=== PATIENT | male | born 1990 | race Caucasian/White ===

== ENCOUNTER 2016-12-04 23:56 | Emergency (ER) | payer SELFPAY ==
[2016-12-05] MEDS ORDERED: LORATADINE 10 MG TAB As Ordered ONE (00:39)
[2016-12-05] MEDS ORDERED: HYDROCORTISONE 1% CREAM 30 GM As Ordered ONE (00:39)
[2016-12-05] MEDS ORDERED: CLINDAMYCIN 150 MG CAP As Ordered ONE (00:40)
--- NOTE | 2016-12-05 01:15 | EDDOCDS ---
Nurse's Notes [facility] Name: Jun Beck Age: 26 yrs Sex: Male : 1990 Arrival Date: 12/04/2016 Time: 23:56 Bed TR8 Private MD: Diagnosis: Local infection of the skin and subcutaneous tissue, unspecified-Trunk and Face, Most likely infected insect bite Presentation: 12/05 00:11 Presenting complaint: Patient states: Red raised areas on right flank and left eye. kmg1 Also has a "bump" under the skin on the left shoulder. Adult Sepsis Screening: Suicide/Homicide risk assessment- the patient denies having any suicidal and/or homicidal ideations and does not present with any other emotional, behavioral or mental health complaints. Status: Patient is not a services rep or dependent. Transition of care: patient was not received from another setting of care. 00:11 Acuity: CHRIS Level 5 km 00:11 Method Of Arrival: Walkin/Carried/Asstd [facility] 00:16 Adult Sepsis Screening: The patient does not have new or worsening altered mentation. kmg1 Patient's respiratory rate is less than 22. Systolic blood pressure is greater than 100. Patient has a qSOFA score of 0- Negative Sepsis Screen. Triage Assessment: 00:16 Bite Description: Bite sustained to left eye, anterior aspect of right lateral abdomen kmg1 and posterior aspect of right lateral abdomen is unknown, ?insect by unknown, Animal Information: Vaccine status: is not applicable not applicable. General: Appears in no apparent distress, comfortable, Behavior is appropriate for age, cooperative, pleasant. Pain: Denies pain. Pt Declines HIV testing. Respiratory: Airway is patent Respiratory effort is even, unlabored, Respiratory pattern is regular, symmetrical. Derm: Rash noted that is itchy, red, on anterior aspect of right lateral abdomen and posterior aspect of right lateral abdomen Reports "Bump" under skin on left shoulder. Historical: - Allergies: SULFA (SULFONAMIDES); IODINEIODINE CONTAINING; SHELLFISH; - Home Meds: 1. albuterol sulfate 90 mcg/actuation Inhl HFAA 2 puffs every 4-6 hours 2. Advair Diskus 250-50 mcg/dose Inhl dsdv 1 puff 2 times per day - PMHx: Asthma; - PSHx: Left Hip repair; - Immunization history:: Last tetanus immunization: < 10 years ago. - Family history: Not pertinent. - Social history: Smoking status: Patient uses tobacco products, light tobacco smoker. No barriers to communication noted, The patient speaks fluent Bengali, Speaks appropriately for age. - : The pt / caregiver states he / she is not on anticoagulants. Home medication list is obtained from the patient. - Exposure Risk Screening:: None identified. Screenin:48 Screening information is obtained from the patient. Fall risk: No risks identified. kmg1 Assistance ADL's: requires no assistance with activities of daily living. Abuse/DV Screen: The patient / caregiver reports he/she is: not in a situation that causes fear, pain or injury. Nutritional screening: No deficits noted. Advance Directives: Currently, there is no health care proxy. There is no active DNR order. home support is adequate. Assessment: 00:15 General: See Triage Assessment. kmg1 00:48 General: Appears in no apparent distress, comfortable, No change in prior assessment. kmg1 Derm: Skin is intact. Vital Signs: 00:16 BP 159 / 75; Pulse 78; Resp 18; Temp 98.2(O); Pulse Ox 96% on R/A; Weight 97.07 kg (M); kmg1 Height 6 ft. 3 in. (190.50 cm) (R); Pain 0/10; 00:16 Body Mass Index 26.75 (97.07 kg, 190.50 cm) [facility] Vitals: 00:16 Log In Time: December 04, 2016 at 23:57. [facility] ED Course: 12/04 23:57 Patient visited by Josephine Khoury Reg. hs2 23:57 Patient moved to Waiting 2 12/05 00:13 Triage Initiated kmg1 00:23 Wendy Faulkner PA-C is PHCP. ef1 00:23 Max Amaro DO is Attending Physician. ef1 00:23 Patient moved to Triage 1 ef1 00:24 Patient visited by Wendy Faulkner PA-C. ef1 00:34 [facility] is Referral Physician. ef1 00:48 The patient / caregiver is instructed regarding the plan of care and ED course. kmg1 00:48 No IV's were initiated during this patient's visit. No procedures done that require kmg1 assistance. 00:49 Patient moved to 8 [facility] 01:00 Patient name changed from Jun\\S\\\\S\\Eppolito\\S\\ to Jun\\S\\Duarte\\S\\Eppolito. EDMS 01:02 [facility] Payment Agreement was scanned into [employer] and attached to record. pm4 Administered Medications: 00:48 Drug: Clindamycin 300 mg [clindamycin 150 mg capsule (2 caps)] Route: PO; kmg1 00:48 Drug: Loratadine 10 mg [loratadine 10 mg tablet (1 tabs)] Route: PO; kmg1 00:48 Drug: Hydrocortisone 1 applic [hydrocortisone 1 % topical cream (1 applic)] Route: km Topical; Site: abdomen; Order Results: There are currently no results for this order. Outcome: 00:34 Discharge ordered by Provider. ef1 00:48 Discharge Assessment: Patient awake, alert and oriented x 3. No cognitive and/or kmg1 functional deficits noted. Patient verbalized understanding of disposition instructions. Patient awake and alert. patient administered narcotics - no. The following High Risk Discharge criteria are identified: None. Discharged to home ambulatory. Condition: stable. Discharge instructions given to patient, Instructed on discharge instructions, follow up and referral plans. medication usage, Demonstrated understanding of instructions, medications, Pt was receptive of discharge instructions/ teaching. Prescriptions given X 2. No special radiology studies were completed. Property sent home with patient. 01:[address] ED[address] [facility] Signatures: Dispatcher [facility] Angela Berry RN RN g1 Wendy Faulkner PA-C PA-C ef1 Josephine Khoury, Reg Reg hs2 Ermias Grigsby, Reg Reg pm4 Corrections: (The following items were deleted from the chart) 00:32 00:16 BP 159 / 75; Pulse 78bpm; Resp 18bpm; Pulse Ox 96% RA; Temp 98.2F Oral; Height 6 kmg1 ft. 3 in. Reported; Pain 0/10; kmg1 MTDD
--- NOTE | 2016-12-05 01:15 | EDDOCDS ---
Physician Documentation [facility] Name: Jun Beck Age: 26 yrs Sex: Male : 1990 Arrival Date: 12/04/2016 Time: 23:56 Bed TR8 Private MD: Disposition: 12/05/16 00:34 Discharged to Home/Self Care. Impression: Local infection of the skin and subcutaneous tissue, unspecified - Trunk and Face, Most likely infected insect bite. - Condition is Stable. - Discharge Instructions: Insect Bite, [id number]. - Prescriptions for Clindamycin HCl 300 mg Oral Capsule - take 1 capsule by ORAL route every 6 hours; 40 capsule. Claritin 10 mg Oral Tablet - take 1 tablet by ORAL route once daily As needed; 30 tablet. - Referral List Call for Appointment, Medication Reconciliation, Local Pharmacy Hours form. - [facility] ; When: 1 - 2 days; Reason: Recheck today's complaints, Continuance of care. Follow up: Emergency Department; Reason: Worsening of conditions. - Problem is new. - Symptoms have improved. Historical: - Allergies: SULFA (SULFONAMIDES); IODINEIODINE CONTAINING; SHELLFISH; - Home Meds: 1. albuterol sulfate 90 mcg/actuation Inhl HFAA 2 puffs every 4-6 hours 2. Advair Diskus 250-50 mcg/dose Inhl dsdv 1 puff 2 times per day - PMHx: Asthma; - PSHx: Left Hip repair; - Immunization history:: Last tetanus immunization: < 10 years ago. - Family history: Not pertinent. - Social history: Smoking status: Patient uses tobacco products, light tobacco smoker. No barriers to communication noted, The patient speaks fluent Barbadian, Speaks appropriately for age. - : The pt / caregiver states he / she is not on anticoagulants. Home medication list is obtained from the patient. - Exposure Risk Screening:: None identified. Vital Signs: 12/05 00:16 BP 159 / 75; Pulse 78; Resp 18; Temp 98.2(O); Pulse Ox 96% on R/A; Weight 97.07 kg / kmg1 214 lbs (M); Height 6 ft. 3 in. (190.50 cm) (R); Pain 0/10; 00:16 Body Mass Index 26.75 (97.07 kg, 190.50 cm) kmg1 MDM: 00:31 Clindamycin 300 mg PO once ordered. ef1 00:31 Loratadine 10 mg PO once ordered. ef1 00:32 Hydrocortisone Cream 1 % 1 applic Topical once ordered. ef1 00:45 Financial registration complete. pm4 01:02 [facility] Payment Agreement was scanned into [employer] and attached to record. pm4 Administered Medications: 00:48 Drug: Clindamycin 300 mg [clindamycin 150 mg capsule (2 caps)] Route: PO; kmg1 00:48 Drug: Loratadine 10 mg [loratadine 10 mg tablet (1 tabs)] Route: PO; kmg1 00:48 Drug: Hydrocortisone 1 applic [hydrocortisone 1 % topical cream (1 applic)] Route: km Topical; Site: abdomen; Signatures: Angela Berry, RN RN kmg1 Wendy Faulkner, PA-C PA-C ef1 Ermias Grigsby, Reg Reg pm4 The chart was reviewed and I authenticate all verbal orders and agree with the evaluation and treatment provided.Attachments: 01:02 [facility] Payment Agreement pm4 MTDD
--- NOTE | 2016-12-07 02:15 | EDDOCDS ---
Physician Documentation [facility] Name: Jun Beck Age: 26 yrs Sex: Male : 1990 Arrival Date: 12/04/2016 Time: 23:56 Bed TR8 Private MD: Disposition: 12/05/16 00:34 Discharged to Home/Self Care. Impression: Local infection of the skin and subcutaneous tissue, unspecified - Trunk and Face, Most likely infected insect bite. - Condition is Stable. - Discharge Instructions: Insect Bite, [id number]. - Prescriptions for Clindamycin HCl 300 mg Oral Capsule - take 1 capsule by ORAL route every 6 hours; 40 capsule. Claritin 10 mg Oral Tablet - take 1 tablet by ORAL route once daily As needed; 30 tablet. - Referral List Call for Appointment, Medication Reconciliation, Local Pharmacy Hours form. - [facility] ; When: 1 - 2 days; Reason: Recheck today's complaints, Continuance of care. Follow up: Emergency Department; Reason: Worsening of conditions. - Problem is new. - Symptoms have improved. Historical: - Allergies: SULFA (SULFONAMIDES); IODINEIODINE CONTAINING; SHELLFISH; - Home Meds: 1. albuterol sulfate 90 mcg/actuation Inhl HFAA 2 puffs every 4-6 hours 2. Advair Diskus 250-50 mcg/dose Inhl dsdv 1 puff 2 times per day - PMHx: Asthma; - PSHx: Left Hip repair; - Immunization history:: Last tetanus immunization: < 10 years ago. - Family history: Not pertinent. - Social history: Smoking status: Patient uses tobacco products, light tobacco smoker. No barriers to communication noted, The patient speaks fluent Burundian, Speaks appropriately for age. - : The pt / caregiver states he / she is not on anticoagulants. Home medication list is obtained from the patient. - Exposure Risk Screening:: None identified. Vital Signs: 12/05 00:16 BP 159 / 75; Pulse 78; Resp 18; Temp 98.2(O); Pulse Ox 96% on R/A; Weight 97.07 kg / kmg1 214 lbs (M); Height 6 ft. 3 in. (190.50 cm) (R); Pain 0/10; 00:16 Body Mass Index 26.75 (97.07 kg, 190.50 cm) kmg1 MDM: 00:31 Clindamycin 300 mg PO once ordered. ef1 00:31 Loratadine 10 mg PO once ordered. ef1 00:32 Hydrocortisone Cream 1 % 1 applic Topical once ordered. ef1 00:45 Financial registration complete. pm4 01:02 [facility] Payment Agreement was scanned into [employer] and attached to record. pm4 09:41 T-Sheet-- Draft Copy was scanned into [employer] and attached to record. gb Administered Medications: 00:48 Drug: Clindamycin 300 mg [clindamycin 150 mg capsule (2 caps)] Route: PO; kmg1 00:48 Drug: Loratadine 10 mg [loratadine 10 mg tablet (1 tabs)] Route: PO; kmg1 00:48 Drug: Hydrocortisone 1 applic [hydrocortisone 1 % topical cream (1 applic)] Route: kmg1 Topical; Site: abdomen; Signatures: Angela Berry RN RN kmg1 Bell Reynoso, Reg Reg gb Wendy Faulkner, PA-C PA-C ef1 Ermias Grigsby, Reg Reg pm4 The chart was reviewed and I authenticate all verbal orders and agree with the evaluation and treatment provided.Attachments: 01:02 [facility] Payment Agreement pm4 09:41 T-Sheet-- Draft Copy gb Chart Complete MTDD
--- NOTE | 2016-12-07 02:15 | EDDOCDS ---
Physician Documentation [facility] Name: Jun Beck Age: 26 yrs Sex: Male : 1990 Arrival Date: 12/04/2016 Time: 23:56 Bed TR8 Private MD: Disposition: 12/05/16 00:34 Discharged to Home/Self Care. Impression: Local infection of the skin and subcutaneous tissue, unspecified - Trunk and Face, Most likely infected insect bite. - Condition is Stable. - Discharge Instructions: Insect Bite, [id number]. - Prescriptions for Clindamycin HCl 300 mg Oral Capsule - take 1 capsule by ORAL route every 6 hours; 40 capsule. Claritin 10 mg Oral Tablet - take 1 tablet by ORAL route once daily As needed; 30 tablet. - Referral List Call for Appointment, Medication Reconciliation, Local Pharmacy Hours form. - [facility]: [facility] ; When: 1 - 2 days; Reason: Recheck today's complaints, Continuance of care. Follow up: Emergency Department; Reason: Worsening of conditions. - Problem is new. - Symptoms have improved. Historical: - Allergies: SULFA (SULFONAMIDES); IODINEIODINE CONTAINING; SHELLFISH; - Home Meds: 1. albuterol sulfate 90 mcg/actuation Inhl HFAA 2 puffs every 4-6 hours 2. Advair Diskus 250-50 mcg/dose Inhl dsdv 1 puff 2 times per day - PMHx: Asthma; - PSHx: Left Hip repair; - Immunization history:: Last tetanus immunization: < 10 years ago. - Family history: Not pertinent. - Social history: Smoking status: Patient uses tobacco products, light tobacco smoker. No barriers to communication noted, The patient speaks fluent Belarusian, Speaks appropriately for age. - : The pt / caregiver states he / she is not on anticoagulants. Home medication list is obtained from the patient. - Exposure Risk Screening:: None identified. Vital Signs: 12/05 00:16 BP 159 / 75; Pulse 78; Resp 18; Temp 98.2(O); Pulse Ox 96% on R/A; Weight 97.07 kg / kmg1 214 lbs (M); Height 6 ft. 3 in. (190.50 cm) (R); Pain 0/10; 00:16 Body Mass Index 26.75 (97.07 kg, 190.50 cm) kmg1 MDM: 00:31 Clindamycin 300 mg PO once ordered. ef1 00:31 Loratadine 10 mg PO once ordered. ef1 00:32 Hydrocortisone Cream 1 % 1 applic Topical once ordered. ef1 00:45 Financial registration complete. pm4 01:02 [facility] Payment Agreement was scanned into [employer] and attached to record. pm4 09:41 T-Sheet-- Draft Copy was scanned into [employer] and attached to record. gb Administered Medications: 00:48 Drug: Clindamycin 300 mg [clindamycin 150 mg capsule (2 caps)] Route: PO; kmg1 00:48 Drug: Loratadine 10 mg [loratadine 10 mg tablet (1 tabs)] Route: PO; kmg1 00:48 Drug: Hydrocortisone 1 applic [hydrocortisone 1 % topical cream (1 applic)] Route: kmg1 Topical; Site: abdomen; Signatures: Angela Berry RN RN kmg1 Bell Reynoso, Reg Reg gb Wendy Faulkner, PA-C PA-C ef1 Ermias Grigsby, Reg Reg pm4 The chart was reviewed and I authenticate all verbal orders and agree with the evaluation and treatment provided.Attachments: 01:02 [facility] Payment Agreement pm4 09:41 T-Sheet-- Draft Copy gb Chart Complete MTDD
--- NOTE | 2016-12-07 02:16 | EDDOCDS ---
Nurse's Notes [facility] Name: Jun Beck Age: 26 yrs Sex: Male : 1990 Arrival Date: 12/04/2016 Time: 23:56 Bed TR8 Private MD: Diagnosis: Local infection of the skin and subcutaneous tissue, unspecified-Trunk and Face, Most likely infected insect bite Presentation: 12/05 00:11 Presenting complaint: Patient states: Red raised areas on right flank and left eye. kmg1 Also has a "bump" under the skin on the left shoulder. Adult Sepsis Screening: Suicide/Homicide risk assessment- the patient denies having any suicidal and/or homicidal ideations and does not present with any other emotional, behavioral or mental health complaints. 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 Transition of care: patient was not received from another setting of care. 00:11 Acuity: CHRIS Level 5 km 00:11 Method Of Arrival: Walkin/Carried/Asstd [facility] 00:16 Adult Sepsis Screening: The patient does not have new or worsening altered mentation. kmg1 Patient's respiratory rate is less than 22. Systolic blood pressure is greater than 100. Patient has a qSOFA score of 0- Negative Sepsis Screen. Triage Assessment: 00:16 Bite Description: Bite sustained to left eye, anterior aspect of right lateral abdomen kmg1 and posterior aspect of right lateral abdomen is unknown, ?insect by unknown, Animal Information: Vaccine status: is not applicable not applicable. General: Appears in no apparent distress, comfortable, Behavior is appropriate for age, cooperative, pleasant. Pain: Denies pain. Pt Declines HIV testing. Respiratory: Airway is patent Respiratory effort is even, unlabored, Respiratory pattern is regular, symmetrical. Derm: Rash noted that is itchy, red, on anterior aspect of right lateral abdomen and posterior aspect of right lateral abdomen Reports "Bump" under skin on left shoulder. Historical: - Allergies: SULFA (SULFONAMIDES); IODINEIODINE CONTAINING; SHELLFISH; - Home Meds: 1. albuterol sulfate 90 mcg/actuation Inhl HFAA 2 puffs every 4-6 hours 2. Advair Diskus 250-50 mcg/dose Inhl dsdv 1 puff 2 times per day - PMHx: Asthma; - PSHx: Left Hip repair; - Immunization history:: Last tetanus immunization: < 10 years ago. - Family history: Not pertinent. - Social history: Smoking status: Patient uses tobacco products, light tobacco smoker. No barriers to communication noted, The patient speaks fluent Belarusian, Speaks appropriately for age. - : The pt / caregiver states he / she is not on anticoagulants. Home medication list is obtained from the patient. - Exposure Risk Screening:: None identified. Screenin:48 Screening information is obtained from the patient. Fall risk: No risks identified. kmg1 Assistance ADL's: requires no assistance with activities of daily living. Abuse/DV Screen: The patient / caregiver reports he/she is: not in a situation that causes fear, pain or injury. Nutritional screening: No deficits noted. Advance Directives: Currently, there is no health care proxy. There is no active DNR order. home support is adequate. Assessment: 00:15 General: See Triage Assessment. kmg1 00:48 General: Appears in no apparent distress, comfortable, No change in prior assessment. kmg1 Derm: Skin is intact. Vital Signs: 00:16 BP 159 / 75; Pulse 78; Resp 18; Temp 98.2(O); Pulse Ox 96% on R/A; Weight 97.07 kg (M); kmg1 Height 6 ft. 3 in. (190.50 cm) (R); Pain 0/10; 00:16 Body Mass Index 26.75 (97.07 kg, 190.50 cm) [facility] Vitals: 00:16 Log In Time: December 04, 2016 at 23:57. [facility] ED Course: 12/04 23:57 Patient visited by Josephine Khoury Reg. hs2 23:57 Patient moved to Waiting 2 12/05 00:13 Triage Initiated kmg1 00:23 Wendy Faulkner PA-C is PHCP. ef1 00:23 Max Amaro DO is Attending Physician. ef1 00:23 Patient moved to Triage 1 ef1 00:24 Patient visited by Wendy Faulkner PA-C. ef1 00:34 [facility] is Referral Physician. ef1 00:48 The patient / caregiver is instructed regarding the plan of care and ED course. kmg1 00:48 No IV's were initiated during this patient's visit. No procedures done that require kmg1 assistance. 00:49 Patient moved to 8 [facility] 01:00 Patient name changed from Jun\\S\\\\S\\Eppolito\\S\\ to Jun\\S\\Duarte\\S\\Eppolito. EDMS 01:02 [facility] Payment Agreement was scanned into [employer] and attached to record. pm4 09:41 T-Sheet-- Draft Copy was scanned into [employer] and attached to record. gb Administered Medications: 00:48 Drug: Clindamycin 300 mg [clindamycin 150 mg capsule (2 caps)] Route: PO; kmg1 00:48 Drug: Loratadine 10 mg [loratadine 10 mg tablet (1 tabs)] Route: PO; kmg1 00:48 Drug: Hydrocortisone 1 applic [hydrocortisone 1 % topical cream (1 applic)] Route: [facility] Topical; Site: abdomen; Order Results: There are currently no results for this order. Outcome: 00:34 Discharge ordered by Provider. ef1 00:48 Discharge Assessment: Patient awake, alert and oriented x 3. No cognitive and/or g1 functional deficits noted. Patient verbalized understanding of disposition instructions. Patient awake and alert. patient administered narcotics - no. The following High Risk Discharge criteria are identified: None. Discharged to home ambulatory. Condition: stable. Discharge instructions given to patient, Instructed on discharge instructions, follow up and referral plans. medication usage, Demonstrated understanding of instructions, medications, Pt was receptive of discharge instructions/ teaching. Prescriptions given X 2. No special radiology studies were completed. Property sent home with patient. 01:15 Patient left the ED. [facility] Signatures: [facility] Angela Berry RN RN kmg1 Bell Reynoso, Reg Reg gb Wendy Faulkner, PA-C PA-C ef1 Josephine Khoury, Reg Reg hs2 Ermias Grigsby, Reg Reg pm4 Corrections: (The following items were deleted from the chart) 00:32 00:16 BP 159 / 75; Pulse 78bpm; Resp 18bpm; Pulse Ox 96% RA; Temp 98.2F Oral; Height 6 kmg1 ft. 3 in. Reported; Pain 0/10; kmg1 Chart Complete MTDD
== END 2016-12-05 01:15 | disposition home or self-care (01) ==
LOC: M ED 23:56
DX: L08.9 Local infection of the skin and subcutaneous tissue, unspecified (principal); J45.909 Unspecified asthma, uncomplicated; Z79.51 Long term (current) use of inhaled steroids; Z88.2 Allergy status to sulfonamides; Z88.8 Allergy status to other drugs, medicaments and biological substances; Z91.013 Allergy to seafood; F17.200 Nicotine dependence, unspecified, uncomplicated

== ENCOUNTER 2017-01-10 00:34 | Emergency (ER) | payer SELFPAY ==
--- NOTE | 2017-01-10 01:00 | EDDOCDS ---
Nurse's Notes [facility] Name: Jun Beck Age: 26 yrs Sex: Male : 1990 Arrival Date: 01/10/2017 Time: 00:34 Bed I3 / M3 Private MD: Diagnosis: Zoster [herpes zoster]-Left Flank Presentation: 01/10 00:38 Presenting complaint: Patient states: he has an abscess on his left lateral abdomen for cz past 3 days. Adult Sepsis Screening: The patient does not have new or worsening altered mentation. Patient's respiratory rate is less than 22. Systolic blood pressure is greater than 100. Patient has a qSOFA score of 0- Negative Sepsis Screen. Suicide/Homicide risk assessment- the patient denies having any suicidal and/or homicidal ideations and does not present with any other emotional, behavioral or mental health complaints. 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 Transition of care: patient was not received from another setting of care. 00:38 Acuity: CHRIS Level 4 cz 00:38 Method Of Arrival: Walkin/Carried/Asstd cz Triage Assessment: 00:40 General: Appears in no apparent distress. Pain: Location: anterior aspect of right cz lateral abdomen. HIV screening NA for this visit Offered previously. Historical: - Allergies: IODINEIODINE CONTAINING; SHELLFISH; SULFA (SULFONAMIDES); - Home Meds: 1. Advair Diskus 250-50 mcg/dose Inhl dsdv 1 puff 2 times per day 2. albuterol sulfate 90 mcg/actuation Inhl HFAA 2 puffs every 4-6 hours - PMHx: Asthma; - PSHx: left hip surgery; - The history from nurses notes was reviewed: but my personal history reveals: Left flank pain/rash; no abd pain. - Social history: Smoking status: Patient uses tobacco products, heavy tobacco smoker. No barriers to communication noted, The patient speaks fluent Welsh, Speaks appropriately for age. - Family history: No immediate family members are acutely ill. - : The pt / caregiver states he / she is not on anticoagulants. Home medication list is obtained from the patient. - Exposure Risk Screening:: None identified. Screenin:59 Screening information is obtained from the patient. Fall risk: No risks identified. nn1 Assistance ADL's: requires no assistance with activities of daily living. Abuse/DV Screen: The patient / caregiver reports he/she is: not in a situation that causes fear, pain or injury. Nutritional screening: No deficits noted. Advance Directives: There is no active DNR order. home support is adequate. Assessment: 00:49 General: Appears in no apparent distress, Behavior is appropriate for age, cooperative, nn1 Redness to left flank, scabs noted. Patient reports area burned then rash began 3 days ago. Patient reports itching to area. . Neurological: No deficits noted. Respiratory: No deficits noted. Derm: Skin is pink, warm & dry. Rash noted that is itchy, red, on left low back. Musculoskeletal: No deficits noted. Vital Signs: 00:40 BP 146 / 83; Pulse 75; Resp 16; Temp 98.8(TE); Pulse Ox 97% on R/A; Weight 99.79 kg; cz Height 6 ft. 3 in. (190.50 cm); 00:40 Body Mass Index 27.50 (99.79 kg, 190.50 cm) cz Vitals: 00:40 Log In Time: January 10, 2017 at 00:36. ED Course: 00:36 Patient visited by Josephine Khoury Reg. hs2 00:36 Patient moved to Waiting hs2 00:37 Patient moved to Triage 1 cz 00:39 Triage Initiated cz 00:41 Patient moved to I3 / M3 cz 00:42 [facility] ef1 00:42 Mateusz Newton DO is Attending Physician. ef1 00:42 Patient visited by Wendy Faulkner PA-C. ef1 00:54 [facility] is Referral Physician. ef1 00:58 No IV's were initiated during this patient's visit. No procedures done that require nn1 assistance. 00:59 The patient / caregiver is instructed regarding the plan of care and ED course. nn1 Order Results: There are currently no results for this order. Outcome: 00:54 Discharge ordered by Provider. ef1 00:59 Discharge Assessment: Patient awake, alert and oriented x 3. No cognitive and/or nn1 functional deficits noted. Patient verbalized understanding of disposition instructions. patient administered narcotics - no. The following High Risk Discharge criteria are identified: None. Discharged to home ambulatory. Condition: stable. Discharge instructions given to patient, Instructed on discharge instructions, follow up and referral plans. medication usage, Demonstrated understanding of instructions, medications, Pt was receptive of discharge instructions/ teaching. Prescriptions given X 2. No special radiology studies were completed. Property :Personal belongings accompany Pt. 00:59 Patient left the ED. nn1 Signatures: Vicente Bauman, RN RN Wendy Hanna, MATTHEWC PAReguloC ef1 Bolivar Pineda RN RN nn1 Josephine Khoury, Reg Reg hs2 MTDD
--- NOTE | 2017-01-10 01:00 | EDDOCDS ---
Physician Documentation [facility] Name: Jun Beck Age: 26 yrs Sex: Male : 1990 Arrival Date: 01/10/2017 Time: 00:34 Bed I3 / M3 Private MD: Disposition: 01/10/17 00:54 Discharged to Home/Self Care. Impression: Zoster [herpes zoster] - Left Flank. - Condition is Stable. - Discharge Instructions: Shingles, [id number]. - Prescriptions for Ibuprofen 800 mg Oral Tablet - take 1 tablet by ORAL route every 8 hours As needed take with food; 30 tablet. Valtrex 1 g Oral Tablet - take 1 tablet by ORAL route every 8 hours for 7 days; 21 tablet. - Referral List Call for Appointment, Medication Reconciliation, Local Pharmacy Hours form. - [facility] ; When: 1 - 2 days; Reason: Recheck today's complaints, Continuance of care. Follow up: Emergency Department; Reason: Worsening of conditions. - Problem is new. - Symptoms have improved. Historical: - Allergies: IODINEIODINE CONTAINING; SHELLFISH; SULFA (SULFONAMIDES); - Home Meds: 1. Advair Diskus 250-50 mcg/dose Inhl dsdv 1 puff 2 times per day 2. albuterol sulfate 90 mcg/actuation Inhl HFAA 2 puffs every 4-6 hours - PMHx: Asthma; - PSHx: left hip surgery; - The history from nurses notes was reviewed: but my personal history reveals: Left flank pain/rash; no abd pain. - Social history: Smoking status: Patient uses tobacco products, heavy tobacco smoker. No barriers to communication noted, The patient speaks fluent Maltese, Speaks appropriately for age. - Family history: No immediate family members are acutely ill. - : The pt / caregiver states he / she is not on anticoagulants. Home medication list is obtained from the patient. - Exposure Risk Screening:: None identified. Vital Signs: 01/10 00:40 BP 146 / 83; Pulse 75; Resp 16; Temp 98.8(TE); Pulse Ox 97% on R/A; Weight 99.79 kg / cz 220 lbs; Height 6 ft. 3 in. (190.50 cm); 00:40 Body Mass Index 27.50 (99.79 kg, 190.50 cm) cz MDM: 01:00 Financial registration complete. hs2 Signatures: Vicente Bauman, RN RN cz Wendy Faulkner PA-C PA-C ef1 Bolivar Pineda RN RN nn1 Josephine Khoury, Reg Reg hs2 MTDD
[2017-01-11] MEDS ORDERED: POLYSPORIN TOPICAL OINTMENT 15GM As Ordered ONE (18:21)
--- NOTE | 2017-01-12 02:02 | EDDOCDS ---
Physician Documentation [facility] Name: Jun Beck Age: 26 yrs Sex: Male : 1990 Arrival Date: 01/10/2017 Time: 00:34 Bed I3 / M3 Private MD: Disposition: 01/10/17 00:54 Discharged to Home/Self Care. Impression: Zoster [herpes zoster] - Left Flank. - Condition is Stable. - Discharge Instructions: Shingles, [id number]. - Prescriptions for Ibuprofen 800 mg Oral Tablet - take 1 tablet by ORAL route every 8 hours As needed take with food; 30 tablet. Valtrex 1 g Oral Tablet - take 1 tablet by ORAL route every 8 hours for 7 days; 21 tablet. - Referral List Call for Appointment, Medication Reconciliation, Local Pharmacy Hours form. - [facility] ; When: 1 - 2 days; Reason: Recheck today's complaints, Continuance of care. Follow up: Emergency Department; Reason: Worsening of conditions. - Problem is new. - Symptoms have improved. Historical: - Allergies: IODINEIODINE CONTAINING; SHELLFISH; SULFA (SULFONAMIDES); - Home Meds: 1. Advair Diskus 250-50 mcg/dose Inhl dsdv 1 puff 2 times per day 2. albuterol sulfate 90 mcg/actuation Inhl HFAA 2 puffs every 4-6 hours - PMHx: Asthma; - PSHx: left hip surgery; - The history from nurses notes was reviewed: but my personal history reveals: Left flank pain/rash; no abd pain. - Social history: Smoking status: Patient uses tobacco products, heavy tobacco smoker. No barriers to communication noted, The patient speaks fluent Hebrew, Speaks appropriately for age. - Family history: No immediate family members are acutely ill. - : The pt / caregiver states he / she is not on anticoagulants. Home medication list is obtained from the patient. - Exposure Risk Screening:: None identified. Vital Signs: 01/10 00:40 BP 146 / 83; Pulse 75; Resp 16; Temp 98.8(TE); Pulse Ox 97% on R/A; Weight 99.79 kg / cz 220 lbs; Height 6 ft. 3 in. (190.50 cm); 00:40 Body Mass Index 27.50 (99.79 kg, 190.50 cm) cz MDM: 01:00 Financial registration complete. hs2 01:04 [facility] Payment Agreement was scanned into [employer] and attached to record. hs2 17:59 T-Sheet-- Draft Copy was scanned into [employer] and attached to record. klr Signatures: Vicente Bauman, RN RN cz Wendy Faulkner, SATHISH BOWER ef1 Bolivar Pineda RN RN nn1 Josephine Khoury, Reg Reg hs2 Ritu Barriga klr The chart was reviewed and I authenticate all verbal orders and agree with the evaluation and treatment provided.Attachments: 01:04 [facility] Payment Agreement hs2 17:59 T-Sheet-- Draft Copy klr Chart Complete MTDD
--- NOTE | 2017-01-12 02:02 | EDDOCDS ---
Physician Documentation [facility] Name: Jun Beck Age: 26 yrs Sex: Male : 1990 Arrival Date: 01/10/2017 Time: 00:34 Bed I3 / M3 Private MD: Disposition: 01/10/17 00:54 Discharged to Home/Self Care. Impression: Zoster [herpes zoster] - Left Flank. - Condition is Stable. - Discharge Instructions: Shingles, [id number]. - Prescriptions for Ibuprofen 800 mg Oral Tablet - take 1 tablet by ORAL route every 8 hours As needed take with food; 30 tablet. Valtrex 1 g Oral Tablet - take 1 tablet by ORAL route every 8 hours for 7 days; 21 tablet. - Referral List Call for Appointment, Medication Reconciliation, Local Pharmacy Hours form. - [facility] ; When: 1 - 2 days; Reason: Recheck today's complaints, Continuance of care. Follow up: Emergency Department; Reason: Worsening of conditions. - Problem is new. - Symptoms have improved. Historical: - Allergies: IODINEIODINE CONTAINING; SHELLFISH; SULFA (SULFONAMIDES); - Home Meds: 1. Advair Diskus 250-50 mcg/dose Inhl dsdv 1 puff 2 times per day 2. albuterol sulfate 90 mcg/actuation Inhl HFAA 2 puffs every 4-6 hours - PMHx: Asthma; - PSHx: left hip surgery; - The history from nurses notes was reviewed: but my personal history reveals: Left flank pain/rash; no abd pain. - Social history: Smoking status: Patient uses tobacco products, heavy tobacco smoker. No barriers to communication noted, The patient speaks fluent Danish, Speaks appropriately for age. - Family history: No immediate family members are acutely ill. - : The pt / caregiver states he / she is not on anticoagulants. Home medication list is obtained from the patient. - Exposure Risk Screening:: None identified. Vital Signs: 01/10 00:40 BP 146 / 83; Pulse 75; Resp 16; Temp 98.8(TE); Pulse Ox 97% on R/A; Weight 99.79 kg / cz 220 lbs; Height 6 ft. 3 in. (190.50 cm); 00:40 Body Mass Index 27.50 (99.79 kg, 190.50 cm) cz MDM: 01:00 Financial registration complete. hs2 01:04 [facility] Payment Agreement was scanned into [employer] and attached to record. hs2 17:59 T-Sheet-- Draft Copy was scanned into [employer] and attached to record. klr Signatures: Vicente Bauman, RN RN cz Wendy Faulkner, SATHISH BOWER ef1 Bolivar Pineda RN RN nn1 Josephine Khoury, Reg Reg hs2 Ritu Barriga klr The chart was reviewed and I authenticate all verbal orders and agree with the evaluation and treatment provided.Attachments: 01:04 [facility] Payment Agreement hs2 17:59 T-Sheet-- Draft Copy klr Chart Complete MTDD
--- NOTE | 2017-01-12 02:02 | EDDOCDS ---
Nurse's Notes [facility] Name: Jun Beck Age: 26 yrs Sex: Male : 1990 Arrival Date: 01/10/2017 Time: 00:34 Bed I3 / M3 Private MD: Diagnosis: Zoster [herpes zoster]-Left Flank Presentation: 01/10 00:38 Presenting complaint: Patient states: he has an abscess on his left lateral abdomen for cz past 3 days. Adult Sepsis Screening: The patient does not have new or worsening altered mentation. Patient's respiratory rate is less than 22. Systolic blood pressure is greater than 100. Patient has a qSOFA score of 0- Negative Sepsis Screen. Suicide/Homicide risk assessment- the patient denies having any suicidal and/or homicidal ideations and does not present with any other emotional, behavioral or mental health complaints. 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 Transition of care: patient was not received from another setting of care. 00:38 Acuity: CHRIS Level 4 cz 00:38 Method Of Arrival: Walkin/Carried/Asstd cz Triage Assessment: 00:40 General: Appears in no apparent distress. Pain: Location: anterior aspect of right cz lateral abdomen. HIV screening NA for this visit Offered previously. Historical: - Allergies: IODINEIODINE CONTAINING; SHELLFISH; SULFA (SULFONAMIDES); - Home Meds: 1. Advair Diskus 250-50 mcg/dose Inhl dsdv 1 puff 2 times per day 2. albuterol sulfate 90 mcg/actuation Inhl HFAA 2 puffs every 4-6 hours - PMHx: Asthma; - PSHx: left hip surgery; - The history from nurses notes was reviewed: but my personal history reveals: Left flank pain/rash; no abd pain. - Social history: Smoking status: Patient uses tobacco products, heavy tobacco smoker. No barriers to communication noted, The patient speaks fluent Brazilian, Speaks appropriately for age. - Family history: No immediate family members are acutely ill. - : The pt / caregiver states he / she is not on anticoagulants. Home medication list is obtained from the patient. - Exposure Risk Screening:: None identified. Screenin:59 Screening information is obtained from the patient. Fall risk: No risks identified. nn1 Assistance ADL's: requires no assistance with activities of daily living. Abuse/DV Screen: The patient / caregiver reports he/she is: not in a situation that causes fear, pain or injury. Nutritional screening: No deficits noted. Advance Directives: There is no active DNR order. home support is adequate. Assessment: 00:49 General: Appears in no apparent distress, Behavior is appropriate for age, cooperative, nn1 Redness to left flank, scabs noted. Patient reports area burned then rash began 3 days ago. Patient reports itching to area. . Neurological: No deficits noted. Respiratory: No deficits noted. Derm: Skin is pink, warm & dry. Rash noted that is itchy, red, on left low back. Musculoskeletal: No deficits noted. Vital Signs: 00:40 BP 146 / 83; Pulse 75; Resp 16; Temp 98.8(TE); Pulse Ox 97% on R/A; Weight 99.79 kg; cz Height 6 ft. 3 in. (190.50 cm); 00:40 Body Mass Index 27.50 (99.79 kg, 190.50 cm) cz Vitals: 00:40 Log In Time: January 10, 2017 at 00:36. cz ED Course: 00:36 Patient visited by Josephine Khoury Reg. hs2 00:36 Patient moved to Waiting hs2 00:37 Patient moved to Triage 1 cz 00:39 Triage Initiated cz 00:41 Patient moved to I3 / M3 cz 00:42 Wendy Faulkner PA-C is PHCP. ef1 00:42 Mateusz Newton DO is Attending Physician. ef1 00:42 Patient visited by Wendy Faulkner PA-C. ef1 00:54 [facility] is Referral Physician. ef1 00:58 No IV's were initiated during this patient's visit. No procedures done that require nn1 assistance. 00:59 The patient / caregiver is instructed regarding the plan of care and ED course. nn1 01:04 [facility] Payment Agreement was scanned into [employer] and attached to record. hs2 17:59 T-Sheet-- Draft Copy was scanned into [employer] and attached to record. klr Order Results: There are currently no results for this order. Outcome: 00:54 Discharge ordered by Provider. ef1 00:59 Discharge Assessment: Patient awake, alert and oriented x 3. No cognitive and/or nn1 functional deficits noted. Patient verbalized understanding of disposition instructions. patient administered narcotics - no. The following High Risk Discharge criteria are identified: None. Discharged to home ambulatory. Condition: stable. Discharge instructions given to patient, Instructed on discharge instructions, follow up and referral plans. medication usage, Demonstrated understanding of instructions, medications, Pt was receptive of discharge instructions/ teaching. Prescriptions given X 2. No special radiology studies were completed. Property :Personal belongings accompany Pt. 00:59 Patient left the ED. nn1 Signatures: Vicente Bauman, RN RN Wendy Hanna, PA-C PA-C ef1 Bolivar Pineda RN RN nn1 Josephine Khoury, Reg Reg hs2 Ritu Barriga Chart Complete MTDD
== END 2017-01-10 00:59 | disposition home or self-care (01) ==
LOC: M ED 00:34
DX: B02.9 Zoster without complications (principal); J45.909 Unspecified asthma, uncomplicated; Z79.51 Long term (current) use of inhaled steroids; Z91.013 Allergy to seafood; Z88.2 Allergy status to sulfonamides; Z88.8 Allergy status to other drugs, medicaments and biological substances

== ENCOUNTER 2017-02-08 19:33 | Emergency (ER) | payer SELFPAY ==
[~2017-02-08] VITALS: Ht 190.5 cm; Wt 102.1 kg
[2017-02-08 19:33] VITALS: BP 149/78
[2017-02-08] MEDS ORDERED: ADV250INH INH (19:40)
[2017-02-08] MEDS ORDERED: ALBU17IN2 INH (19:40)
[2017-02-08] MEDS ORDERED: DOXY100C37 PO (21:10)
[2017-02-08] MEDS ORDERED: IBUP600T26 PO (21:10)
[2017-02-08] MEDS ORDERED: IBUPROFEN 800 MG TAB PO ONE (21:15)
[2017-02-08] MEDS ORDERED: DOXYCYCLINE HYCLATE 100 MG TAB PO ONE (21:15)
--- NOTE | 2017-02-09 09:13 | REP ---
Clinical: Pain. Trauma. Technique: AP, lateral, bilateral oblique views right hand . Findings: The osseous structures and joint spaces are intact and normal. There is no evidence for acute fracture or dislocation. Surrounding soft tissues are unremarkable. No subcutaneous emphysema or radiodense foreign body. Impression: Normal examination. No acute fracture or dislocation. Signed by Nate Redmond MD 02/09/2017 09:05 A
== END 2017-02-08 21:49 | disposition home or self-care (01) ==
LOC: M ED 20:23
DX: M25.541 Pain in joints of right hand (principal); M79.89 Other specified soft tissue disorders; J45.909 Unspecified asthma, uncomplicated; F17.200 Nicotine dependence, unspecified, uncomplicated; Z88.2 Allergy status to sulfonamides; Z79.51 Long term (current) use of inhaled steroids

== ENCOUNTER 2017-02-13 17:28 | Emergency (ER) | payer SELFPAY ==
[~2017-02-13] VITALS: Ht 190.5 cm; Wt 98.4 kg
[~2017-02-13 17:28] MED LIST: ADV250INH INH; ALBU17IN2 INH; DOXY100C37 PO; IBUP600T26 PO
[2017-02-13] MEDS ORDERED: CEPHALEXIN 500 MG CAP PO ONE (19:45)
[2017-02-13] MEDS ORDERED: predniSONE 20 MG TAB PO ONE (19:45)
[2017-02-13] MEDS ORDERED: PEPC1TAB4 PO (19:47)
[2017-02-13] MEDS ORDERED: PRED20TA PO (19:47)
[2017-02-13] MEDS ORDERED: KEFL500C7 PO (19:47)
[2017-02-13 20:00] VITALS: BP 131/70
== END 2017-02-13 20:28 | disposition home or self-care (01) ==
LOC: M ED 20:26
DX: R21 Rash and other nonspecific skin eruption (principal); J45.909 Unspecified asthma, uncomplicated; Z88.2 Allergy status to sulfonamides; Z88.8 Allergy status to other drugs, medicaments and biological substances; Z79.51 Long term (current) use of inhaled steroids

== ENCOUNTER 2017-12-05 18:50 | Emergency (ER) | payer SELFPAY ==
[2017-12-05] MEDS: ALBUTEROL SULFATE 2.5 MG/0.5 ML INH NEB SOLN NEB (21:54)
[2017-12-05] MEDS ORDERED: ALBUTEROL 90 MCG/ACT 8GM HFA INHALER INH (23:00)
== END 2017-12-05 23:52 | disposition home or self-care (01) ==
LOC: M ED 18:50
DX: J45.909 Unspecified asthma, uncomplicated (principal); J32.9 Chronic sinusitis, unspecified; Z87.891 Personal history of nicotine dependence; Z88.1 Allergy status to other antibiotic agents; Z88.2 Allergy status to sulfonamides; Z88.8 Allergy status to other drugs, medicaments and biological substances
CPT/HCPCS: 94640

== ENCOUNTER 2017-12-12 21:08 | Emergency (ER) | payer SELFPAY ==
[2017-12-13 01:24] LABS: BASO # 0.1 10^3/uL (0.0-0.2); BASO % 0.7 % (0.0-1.0); EOS # 0.3 10^3/uL (0.0-0.50); EOS % 3.8 % (0.0-3.0); HEMATOCRIT 44.4 % (42.0-52.0); HEMOGLOBIN 15.6 g/dl (14.0-18.0); IMMATURE GRANULOCYTE % 0.3 % (0-0); LYMPH # 2.4 10^3/uL (1.5-6.5); LYMPH % 33.3 % (24.0-44.0); MEAN CORPUSCULAR HEMOGLOBIN 28.7 pg (27.0-33.0); MEAN CORPUSCULAR HGB CONC 35.1 g/dl (32.0-36.5); MEAN CORPUSCULAR VOLUME 81.6 fl (80.0-96.0); MONO # 0.6 10^3/uL (0.0-0.8); MONO % 8.6 % (0.0-5.0); NEUTROPHILS # 3.9 10^3/uL (1.8-7.7); NEUTROPHILS % 53.3 % (36.0-66.0); PLATELET COUNT, AUTOMATED 320 10^3/uL (150-450); RED BLOOD COUNT 5.44 10^6/uL (4.30-6.10); RED CELL DISTRIBUTION WIDTH 11.9 % (11.5-14.5); WHITE BLOOD COUNT 7.3 10^3/uL (4.0-10.0)
[2017-12-13] MEDS: NS 1,000 ML IV (01:30)
[2017-12-13 01:41] LABS: INR 0.98; PROTHROMBIN TIME 13.1 SECONDS (12.4-14.5)
[2017-12-13 02:04] LABS: ALBUMIN 4.2 GM/DL (3.2-5.2); ALBUMIN/GLOBULIN RATIO 1.27 (1.00-1.93); ALKALINE PHOSPHATASE 95 U/L (45-117); ALT/SGPT 39 U/L (12-78); ANION GAP 6 MEQ/L (8-16); AST/SGOT 22 U/L (7-37); BILIRUBIN,DIRECT < 0.1 MG/DL (0.0-0.2); BILIRUBIN,TOTAL 0.4 MG/DL (0.2-1.0); BLOOD UREA NITROGEN 15 MG/DL (7-18); CALCIUM LEVEL 8.7 MG/DL (8.5-10.1); CARBON DIOXIDE LEVEL 29 MEQ/L (21-32); CHLORIDE LEVEL 104 MEQ/L (98-107); CREATININE FOR GFR 1.16 MG/DL (0.70-1.30); GLOMERULAR FILTRATION RATE > 60.0 (>60); GLUCOSE, FASTING 106 MG/DL (70-100); LIPASE 173 U/L (73-393); POTASSIUM SERUM 3.5 MEQ/L (3.5-5.1); SODIUM LEVEL 139 MEQ/L (136-145); TOTAL PROTEIN 7.5 GM/DL (6.4-8.2)
== END 2017-12-13 04:12 | disposition home or self-care (01) ==
LOC: M ED 21:08
DX: K57.30 Diverticulosis of large intestine without perforation or abscess without bleeding (principal); J45.909 Unspecified asthma, uncomplicated; Z88.1 Allergy status to other antibiotic agents; Z88.2 Allergy status to sulfonamides; Z88.8 Allergy status to other drugs, medicaments and biological substances; Z98.890 Other specified postprocedural states
CPT/HCPCS: 74176

== ENCOUNTER 2018-04-26 00:37 | Emergency (ER) | payer SELFPAY ==
[2018-04-26] MEDS ORDERED: DERMABOND TOPICAL SKIN ADHESIVE TOP (01:15)
== END 2018-04-26 01:34 | disposition home or self-care (01) ==
LOC: M ED 00:37
DX: S61.217A Laceration without foreign body of left little finger without damage to nail, initial encounter (principal); W26.8XXA Contact with other sharp object(s), not elsewhere classified, initial encounter; Y92.89 Other specified places as the place of occurrence of the external cause; J45.909 Unspecified asthma, uncomplicated; F17.200 Nicotine dependence, unspecified, uncomplicated; Z88.2 Allergy status to sulfonamides; Z88.8 Allergy status to other drugs, medicaments and biological substances
CPT/HCPCS: 12002

== ENCOUNTER 2018-05-31 19:22 | Emergency (ER) | payer MEDICAID, SELFPAY, OTHER ==
[2018-05-31] MEDS: diphenhydrAMINE INJ 50MG/ML VIAL (J1200) IV ×2 (20:39)
[2018-05-31] MEDS: NS 1,000 ML IV ×2 (20:39)
[2018-05-31] MEDS: methylPREDNISolone INJ 125 MG/2 ML VIAL (J2930) IV ×2 (20:40)
[2018-05-31] MEDS: FAMOTIDINE INJ 20MG/2ML VIAL (S0028) IV ×2 (20:43)
== END 2018-05-31 21:36 | disposition home or self-care (01) ==
LOC: M ED 19:22
DX: L50.0 Allergic urticaria (principal); J45.909 Unspecified asthma, uncomplicated; F17.200 Nicotine dependence, unspecified, uncomplicated; Z91.013 Allergy to seafood; Z88.2 Allergy status to sulfonamides; Z88.8 Allergy status to other drugs, medicaments and biological substances
CPT/HCPCS: J1200

== ENCOUNTER 2018-07-16 11:52 | Emergency (ER) | payer OTHER ==
[2018-07-16 12:43] LABS: HEMATOCRIT 46.3 % (42.0-52.0); HEMOGLOBIN 16.5 g/dl (13.5-17.5); MEAN CORPUSCULAR HEMOGLOBIN 29.4 pg (27.0-33.0); MEAN CORPUSCULAR HGB CONC 35.6 g/dl (32.0-36.5); MEAN CORPUSCULAR VOLUME 82.5 fl (80.0-96.0); PLATELET COUNT, AUTOMATED 347 10^3/uL (150-450); RED BLOOD COUNT 5.61 10^6/uL (4.30-6.10); RED CELL DISTRIBUTION WIDTH 11.9 % (11.5-14.5); WHITE BLOOD COUNT 6.7 10^3/uL (4.0-10.0)
[2018-07-16 13:01] LABS: AMPHETAMINES LEVEL URINE NEGATIVE (NEGATIVE); BARBITURATES URINE NEGATIVE (NEGATIVE); BENZODIAZEPINES URINE NEGATIVE (NEGATIVE); CANNABINOIDS URINE NEGATIVE (NEGATIVE); COCAINE METABOLITE URINE POSITIVE (NEGATIVE); METHADONE URINE NEGATIVE (NEGATIVE); OPIATES URINE NEGATIVE (NEGATIVE); PHENCYCLIDINE URINE NEGATIVE (NEGATIVE)
[2018-07-16 13:11] LABS: ALBUMIN 3.6 GM/DL (3.2-5.2); ALBUMIN/GLOBULIN RATIO 1.09 (1.00-1.93); ALKALINE PHOSPHATASE 96 U/L (45-117); ALT/SGPT 33 U/L (12-78); ANION GAP 9 MEQ/L (8-16); AST/SGOT 20 U/L (7-37); BILIRUBIN,DIRECT 0.1 MG/DL (0.0-0.2); BILIRUBIN,TOTAL 0.3 MG/DL (0.2-1.0); BLOOD UREA NITROGEN 13 MG/DL (7-18); CALCIUM LEVEL 9.2 MG/DL (8.5-10.1); CARBON DIOXIDE LEVEL 27 MEQ/L (21-32); CHLORIDE LEVEL 106 MEQ/L (98-107); CREATININE FOR GFR 1.18 MG/DL (0.70-1.30); ETHYL ALCOHOL (ETHANOL) 0.004 % (0.000-0.010); GLOMERULAR FILTRATION RATE > 60.0 (>60); GLUCOSE, FASTING 100 MG/DL (70-100); POTASSIUM SERUM 4.2 MEQ/L (3.5-5.1); SALICYLATE LEVEL 2.1 MG/DL (5.0-30.0); SODIUM LEVEL 142 MEQ/L (136-145); TOTAL PROTEIN 6.9 GM/DL (6.4-8.2)
[2018-07-16 13:15] LABS: ACETAMINOPHEN LEVEL < 2.0 UG/ML (10.0-30.0)
== END 2018-07-16 14:24 | disposition home or self-care (01) ==
LOC: M ED 11:52
DX: F33.9 Major depressive disorder, recurrent, unspecified (principal); J45.909 Unspecified asthma, uncomplicated; Z88.1 Allergy status to other antibiotic agents; Z88.2 Allergy status to sulfonamides; Z88.8 Allergy status to other drugs, medicaments and biological substances; Z91.013 Allergy to seafood; F17.210 Nicotine dependence, cigarettes, uncomplicated
CPT/HCPCS: 80320

== ENCOUNTER 2018-09-05 09:02 | Emergency (ER) | payer OTHER ==
[2018-09-05] MEDS: predniSONE 20 MG TAB PO (09:22)
[2018-09-05] MEDS: IPRATROPIUM 0.5MG/ALBUTEROL 2.5MG INH SOL UD 3ML (DUONEB)(J7620) NEB (09:31)
[2018-09-05] MEDS: ALBUTEROL 90 MCG/ACT 8GM HFA INHALER INH (09:48)
== END 2018-09-05 09:49 | disposition home or self-care (01) ==
LOC: M ED 09:02
DX: J45.901 Unspecified asthma with (acute) exacerbation (principal); Z91.89 Other specified personal risk factors, not elsewhere classified; Z91.013 Allergy to seafood; Z88.2 Allergy status to sulfonamides
CPT/HCPCS: 94640

== ENCOUNTER 2018-10-19 21:08 | Emergency (ER) | payer OTHER ==
[2018-10-19] MEDS: ALBUTEROL 90 MCG/ACT 8GM HFA INHALER INH (23:00)
== END 2018-10-19 23:40 | disposition home or self-care (01) ==
LOC: M ED 21:08
DX: J06.9 Acute upper respiratory infection, unspecified (principal); J45.909 Unspecified asthma, uncomplicated; Z88.1 Allergy status to other antibiotic agents; Z88.2 Allergy status to sulfonamides; Z88.8 Allergy status to other drugs, medicaments and biological substances; Z91.013 Allergy to seafood
CPT/HCPCS: 71046

== ENCOUNTER 2018-11-11 11:55 | Emergency (ER) | payer OTHER ==
[~2018-11-11] VITALS: Ht 190.5 cm; Wt 100.0 kg
[~2018-11-11 11:55] MED LIST changes: +ALBU83IN INH; +ALBU83IN NEB; +AUGM875T28 PO; +FLON1SPR; +IBUP-1022 PO; -IBUP600T26 PO; +KEFL500C17 PO; +PEPC1TAB5 PO; +PRED20TA PO; +PROAAER10 INH; +VENTAER INH; +ZITHTAB PO
[2018-11-11] MEDS ORDERED: ALBUTEROL SULFATE 2.5 MG/0.5 ML INH NEB SOLN NEB ONE (13:45)
[2018-11-11] MEDS ORDERED: NEBUMIS2 XX (14:38)
[2018-11-11] MEDS ORDERED: PROAAER10 INH (14:38)
[2018-11-11 14:49] VITALS: BP 140/82
== END 2018-11-11 14:50 | disposition home or self-care (01) ==
LOC: M ED 11:55
DX: Z76.0 Encounter for issue of repeat prescription (principal); J45.909 Unspecified asthma, uncomplicated; Z88.1 Allergy status to other antibiotic agents; Z88.2 Allergy status to sulfonamides; Z88.8 Allergy status to other drugs, medicaments and biological substances; Z91.013 Allergy to seafood; F17.210 Nicotine dependence, cigarettes, uncomplicated

== ENCOUNTER 2019-01-20 08:30 | Emergency (ER) | payer OTHER ==
[~2019-01-20] VITALS: Ht 190.5 cm; Wt 100.0 kg
[~2019-01-20 08:30] MED LIST changes: +NEBUMIS2 XX
[2019-01-20] MEDS ORDERED: ACET-683 PO ×2 (08:35→08:59)
[2019-01-20] MEDS ORDERED: CLIN150C14 PO (08:57)
[2019-01-20] MEDS ORDERED: VENTAER INH (08:58)
[2019-01-20] MEDS ORDERED: IBUP-1022 PO (08:59)
[2019-01-20] MEDS ORDERED: KETOROLAC 60 MG/2 ML VIAL (J1885) IM ONE (09:00)
[2019-01-20 09:48] VITALS: BP 124/82
== END 2019-01-20 09:51 | disposition home or self-care (01) ==
LOC: M ED 08:30
DX: K04.7 Periapical abscess without sinus (principal); J45.909 Unspecified asthma, uncomplicated; Z88.1 Allergy status to other antibiotic agents; Z88.2 Allergy status to sulfonamides; Z88.8 Allergy status to other drugs, medicaments and biological substances; Z91.013 Allergy to seafood; F17.210 Nicotine dependence, cigarettes, uncomplicated
CPT/HCPCS: 96372; 99283; J1885